=== PATIENT | male | born 1980 | race Caucasian/White ===

== ENCOUNTER 2018-05-04 08:33 | Outpatient (REF) | payer OTHER, SELFPAY ==
[2018-05-04 14:10] LABS: ALT 32 U/L (12-78); AST 17 U/L (15-37); Albumin 3.9 g/dL (3.4-5.0); Alkaline Phosphatase 110 U/L (46-116); Anion Gap 8.2 mmol/L (3-11); BUN 18 mg/dL (7-18); Bilirubin, Total 0.5 mg/dL (0.2-1.0); CO2 28.8 mmol/L (21.0-32.0); CREATININE 1.11 mg/dL (0.70-1.30); Calcium 9.3 mg/dL (8.5-10.1); Chloride 104 mmol/L (98-107); Cholesterol 218 mg/dL (50-200); Glucose 103 mg/dL (70-100); HDL Cholesterol 43 mg/dL (40-60); LDL CHOLESTEROL 137 mg/dL (<100); Potassium 4.2 mmol/L (3.5-5.1); Sodium 141 mmol/L (136-145); Total Protein 7.2 g/dL (6.4-8.2); Triglyceride 218 mg/dL (30-150)
== END 2018-05-04 08:53 ==
LOC: NCHCN 08:33
PROVIDERS: PCP Nurse Practitioner Family; Visit Provider Nurse Practitioner Family
DX: Z00.00 Encounter for general adult medical examination without abnormal findings (principal); Z13.228 Encounter for screening for other metabolic disorders; Z13.220 Encounter for screening for lipoid disorders
CPT/HCPCS: 80053; 80061; 83721

== ENCOUNTER 2019-05-18 13:41 | Outpatient (REF) | payer OTHER, SELFPAY ==
[2019-05-18 15:03] LABS: Abs Immature Grans 0.03 k/cumm (0.0-0.09); Absolute Basophil Count 0.06 k/cumm (0.0-0.2); Absolute Eosinophil Count 0.26 k/cumm (0.0-0.7); Absolute Lymphocyte Count 2.96 k/cumm (1.2-3.4); Absolute Monocyte Count 1.18 k/cumm (0.11-0.7); Absolute Neutrophil Count 7.11 k/cumm (1.2-6.7); Basophils % 0.5; Eosinophils % 2.2; HCT 49.5 % (40.0-50.0); HGB 16.7 g/dL (13.5-17.5); Immature Grans % 0.3 %; Lymphocytes % 25.5; Mean Corp. HGB Concentration 33.7 g/dL (32.0-36.0); Mean Corpuscular Hemoglobin 31.3 pg (27.0-33.0); Mean Corpuscular Volume 92.9 fL (80-95); Mean Platelet Volume 9.9 fL (8.0-11.0); Monocytes % 10.2; Neutrophils % 61.3; Platelet Count 304 x1000/uL (130-400); RBC 5.33 m/cumm (4.50-6.00); RBC Distribution Width 13.2 % (11.8-14.1)
[2019-05-18 15:24] LABS: ALT 27 U/L (16-63); AST 20 U/L (15-37); Albumin 4.2 g/dL (3.4-5.0); Alkaline Phosphatase 116 U/L (46-116); Anion Gap 9.6 mmol/L (3-11); BUN 20 mg/dL (7-18); Bilirubin, Total 0.2 mg/dL (0.2-1.0); CO2 28.4 mmol/L (21.0-32.0); CREATININE 0.87 mg/dL (0.70-1.30); Calcium 9.1 mg/dL (8.5-10.1); Chloride 107 mmol/L (98-107); Glucose 96 mg/dL (74-106); Potassium 4.7 mmol/L (3.5-5.1); Sodium 145 mmol/L (136-145)
[2019-05-18 15:44] LABS: Calculated LDL 143 mg/dL; Cholesterol 214 mg/dL (<200); HDL Cholesterol 38 mg/dL (40-60); Triglyceride 167 mg/dL (<150)
== END 2019-05-18 14:01 ==
LOC: NCHCN 13:41
PROVIDERS: PCP Nurse Practitioner Family; Visit Provider Nurse Practitioner Family
DX: Z00.00 Encounter for general adult medical examination without abnormal findings (principal); Z13.0 Encounter for screening for diseases of the blood and blood-forming organs and certain disorders involving the immune mechanism; Z13.220 Encounter for screening for lipoid disorders; Z13.228 Encounter for screening for other metabolic disorders
CPT/HCPCS: 80053; 80061; 85025

== ENCOUNTER 2019-10-18 17:08 | Outpatient (REF) | payer OTHER, SELFPAY ==
[2019-10-19 23:52] LABS: COVID-19 RT-PCR UVMMC Result Negative (Negative)
== END 2019-10-18 17:28 ==
LOC: NCHCN 17:08
PROVIDERS: PCP Nurse Practitioner Family; Visit Provider Nurse Practitioner Family
DX: J06.9 Acute upper respiratory infection, unspecified (principal)
CPT/HCPCS: U0003

== ENCOUNTER 2020-04-07 22:27 | Outpatient (REF) | payer SELFPAY ==
[2020-04-11 22:09] LABS: COVID-19 RT-PCR Result NEGATIVE (Negative)
== END 2020-04-07 22:47 ==
LOC: NCHCN 22:27
PROVIDERS: PCP Nurse Practitioner Family; Visit Provider Nurse Practitioner Family
DX: Z20.828 Contact with and (suspected) exposure to other viral communicable diseases (principal)
CPT/HCPCS: U0003

== ENCOUNTER 2021-12-10 12:40 | Outpatient (REF) | payer OTHER, SELFPAY ==
[2021-12-10 14:18] LABS: ALT 32 U/L (16-63); AST 23 U/L (15-37); Albumin 4.1 g/dL (3.4-5.0); Alkaline Phosphatase 100 U/L (46-116); Anion Gap 11.5 mmol/L (3-11); BUN 19 mg/dL (7-18); Bilirubin, Total 0.3 mg/dL (0.2-1.0); CO2 25.5 mmol/L (21.0-32.0); CREATININE 0.8 mg/dL (0.70-1.30); Calcium 9.3 mg/dL (8.5-10.1); Calculated LDL 144 mg/dL (<100); Chloride 103 mmol/L (98-107); Cholesterol 229 mg/dL (<200); Glucose 101 mg/dL (74-106); HDL Cholesterol 49 mg/dL (40-60); Sodium 140 mmol/L (136-145); Total Protein 7.8 g/dL (6.4-8.2); Triglyceride 184 mg/dL (<150)
== END 2021-12-10 12:41 | disposition home or self-care (01) ==
LOC: NCHCN 12:40
PROVIDERS: PCP Nurse Practitioner Family; Visit Provider Nurse Practitioner Family
DX: Z00.00 Encounter for general adult medical examination without abnormal findings (principal); E78.5 Hyperlipidemia, unspecified; F17.200 Nicotine dependence, unspecified, uncomplicated; F10.10 Alcohol abuse, uncomplicated
CPT/HCPCS: 80053; 80061

== ENCOUNTER 2022-09-17 22:33 | Emergency (ER) | payer OTHER, SELFPAY ==
[2022-09-17] VITALS (21 sets, daily range): BP systolic 129–170; BP diastolic 66–103; PULSE 57–100; RESP 10–19; O2SAT 94–98
--- NOTE | 2022-09-17 22:30 | RT.EKG_ITS ---
APPROVED REPORT Exam: Resting ECG Reason for Exam: chest pain Patient Location: E HR:85 bpm ECG Measurements Heart Rate 85 AXIS MO 197 P 77 QRSd 113 QRS 101 QT 349 T 101 QTc 415 Conclusion Sinus rhythm...normal P axis, V-rate 60- 99 Inferior infarct, acute...ST>0.10mV, T upright, II III aVF STEMI IWMI with anterolat extension
[2022-09-17 22:56] LABS: Abs Immature Grans 0.06 10^3/uL (0.0-0.06); Absolute Eosinophil Count 0.54 10^3/uL (0.0-0.7); Absolute Lymphocyte Count 6.66 10^3/uL (1.2-3.4); Basophils % 1.1; Eosinophils % 3.2; HCT 47.5 % (40.0-50.0); HGB 16.8 g/dL (13.5-17.5); Immature Grans % 0.4; Lymphocytes % 39.5; MCH 32.1 pg (27.0-33.0); MCHC 35.4 % (32.0-36.0); MCV 91 fL (80-95); MPV 8.8 fL (8.0-11.0); Monocytes % 10.8; Platelet Count 304 10^3/uL (130-400); RBC 5.24 10^6/uL (4.36-5.78); RDW 12.2 % (11.8-14.1); RDW-SD 40.1 fL; WBC 16.87 10^3/uL (4.4-10.8)
[2022-09-17] MEDS: Aspirin 325 MG TAB (22:56)
[2022-09-17 22:57] LABS: Absolute Basophil Count 0.19 10^3/uL (0.0-0.2); Absolute Monocyte Count 1.82 10^3/uL (0.1-0.8); Absolute Neutrophil Count 7.59 10^3/uL (1.2-6.7)
[2022-09-17] MEDS: nitroGLYcerin 0.4 MG TAB ×3 (22:57→23:08)
[2022-09-17] MEDS: Heparin in 0.45% NaCl 25,000 UNIT/250 ML BAG 10 UNIT IV (23:00)
--- NOTE | 2022-09-17 23:00 | DI.RAD_ITS ---
Exam(s) XR PORTABLE CHEST AP EXAM: XR PORTABLE CHEST AP CLINICAL HISTORY: CP. TECHNIQUE: 2D digital imaging was performed. COMPARISON: CR CHEST 2 VIEWS PA,LAT from 10/11/2008 FINDINGS: Single AP portable view. Left chest cardiac pads in place. Heart size is upper normal. The mediastinum is not widened. Lungs are clear. No infiltrates nor obvious pleural effusions. IMPRESSION: No acute pulmonary findings on this single AP portable view of the chest. DATA REPOSITORY: RADIATION DOSE DELIVERED:
[2022-09-17] MEDS: Tenecteplase 50 MG KIT (23:01)
[2022-09-17] MEDS: LORazepam 2 MG/ML VIAL (23:02)
[2022-09-17 23:08] LABS: INR 0.9 (0.9-1.1); PTT Activated 23.5 sec (21.5-31.9); Prothrombin Time 9.1 sec (9.3-11.0)
[2022-09-17] MEDS: MORPHine 4 MG/ML SYR IVP (23:10)
--- NOTE | 2022-09-17 23:10 | W.ED.GENAD ---
Discharge Plan Discharge Details Chief Complaint: Chest Pain Primary Care Provider: ABIGAIL ARROYO ED Provider: Ashly Inman Home Meds and New Rx's Prescriptions: No Action lorazepam 0.5 MG tablet 0.5 mg PO PRN PRN paroxetine HCl 40 MG tablet 1 tab PO DAILY Medical Decision Making Patient having an acute STEMI, inferior wall. The patient's blood pressure was 160s over 100 on arrival and he was given 3 sublingual nitroglycerin without helping his pain at all. His blood pressure tolerated this well and he is getting morphine at this time (BP also tolerating this). The patient got 324 mg of aspirin, TNK, and heparin. I will hold off on oral Plavix until I talk to cardiology at [facility]. The patient and his did give permission for the TNK after it was confirmed that he has no contraindications. They know that we will likely transfer him to [facility] but are waiting for an accepting cadence specialists. Pacer pads were placed on the patient after I began noticing a number of P waves without QRS complexes. This was interspersed with normal sinus rhythm. This time the patient seems to be in normal sinus rhythm. 2335: Note, the patient's weight in the ER today is 124.7 kg, not 115.6. Patient discussed with Dr. Maxwell from cardiology at [facility]. Dr. Guille Magdaleno will be the accepting physician. Dr. Maxwell concurs with 300 mg of Plavix. He concurs with holding on IV nitroglycerin is the 3 sublinguals did nothing. He would like us to focus on opioids instead for the patient's pain. Patient has had 10 mg of IV morphine is and is getting another 6 mg right now. He tells me that his anxiety feels pretty good but his pain is still about an 8 out of 10. 2355: Patient's vital signs continue to be stable. He appears to be sleeping when I walk into the room although tells me that his pain is down to a 7 out of 10. We will give him some additional morphine. DART is expected here about 12:15. Pt. later said he had had some NV before coming to ED. Medical Records Medical records reviewed: Yes I reviewed the patient's medical records. Imaging Data Radiologic Study: Attestation: I personally reviewed and interpreted this imaging study as follows: (NAD) ECG Data Attestation: I personally reviewed and interpreted this ECG (s) as follows: (NSR 85, IWMI with anterolateral extension) HPI General Date/Time Provider Initiated Documentation: 09/17/22 22:47. HPI Narrative: This 41-year-old male patient presents with a history of substernal chest pain that began 30 minutes prior to arrival. The patient's description of it is intense. He states that it went across his chest and down both arms. The arm pain is not as bad now though the chest pain persist. It does not radiate into his neck or back. He has no shortness of breath but states that the pain takes his breath away. He has no abdominal pain. There is no pedal edema or calf pain. Patient reports that he smokes a pack of cigarettes per day and his cholesterol is borderline. He denies a history of hypertension, diabetes, or cocaine use. There is no family history of MT or coronary artery disease. The pain is severe. Nothing really makes it better or worse. It is constant. Patient does drink 3-4 times a week and has 7 or 8 drinks on those days. He states that he has had about 7 drinks today. He also has a history of anxiety Related Data Home Medications Medication Instructions Recorded Confirmed lorazepam 0.5 mg tablet 0.5 mg PO PRN PRN 07/08/12 09/17/22 paroxetine HCl 40 mg tablet 1 tab PO DAILY 02/25/15 09/17/22 Allergies Allergy/AdvReac Type Severity Reaction Status Date / Time No Known Allergies Allergy Unverified 09/17/22 22:42 General Stated Complaint: Chest Pain JUDD: 3 Review of Systems Constitutional Constitutional: Denies chills, Denies fever(s), Denies headache(s) and Denies weakness Eyes Eyes: Denies diplopia and Reports other (no redness) ENT Ears, Nose, Mouth, and Throat: Denies otalgia, Denies headache(s), Denies nasal congestion, Denies nasal discharge, Denies neck pain and Denies sore throat Cardiovascular Cardiovascular: Reports chest pain, Denies palpitations and Denies dyspnea Respiratory Respiratory: Denies cough and Denies dyspnea Gastrointestinal Gastrointestinal: Denies abdominal pain, Denies diarrhea, Denies nausea and Denies vomiting Genitourinary Genitourinary: Denies difficulty urinating and Denies dysuria Musculoskeletal Musculoskeletal: Denies myalgias, Denies muscle weakness, Denies neck pain, Denies numbness and Reports other (edema) Integumentary/Breasts Skin/Breast: Denies change in pigmentation and Denies rash Neurologic Neurologic: Denies headache(s), Denies numbness and Denies weakness Endocrine Endocrine: Denies palpitations PFSH Medical History Depression Social History Smoking/Tobacco Use Status: Current every day Smoking risk assessment performed?: Yes Alcohol Intake: current Alcohol Intake frequency: a few times a week Drug use: Occasionally Substance use type: marijuana Do you feel safe at home: Yes Do you feel safe in your relationship?: Yes Exam Const General: well developed, well groomed and acute distress (Uncomfortable) Nutritional Appearance: well nourished Orientation: alert and oriented x3 HENHI Head: normocephalic and atraumatic Ears: external ears normal Mouth: oropharynx normal and moist mucous membranes Throat: posterior oropharynx normal Eyes Conjunctivae: conjunctivae normal Neck Neck: full ROM and supple Chest Chest: normal inspection of the chest Resp Effort & Inspection: normal respiratory effort Auscultation: clear to auscultation bilaterally Cardio Rate: regular rate Rhythm: regular rhythm Heart Sounds: no murmurs and no rubs GI Inspection: normal to inspection Palpation: soft, nontender and other (non distended) Auscultation: normal bowel sounds Skin General skin exam: no rashes or lesions noted and other (pink, warm, dry) Neuro General: patient alert, patient awake and patient oriented x3 Speech: speech normal Motor: other (OCONNOR) Sensory Exam: no sensory deficits noted Extrem General: normal to inspection, full ROM and pedal edema present Psych Mental Status: mental status grossly normal Speech and Movement: speech and movement normal Affect: normal affect Course Vital Signs Vital signs: Vital Signs Pulse 92 H 09/17/22 22:36 Respiratory Rate 19 09/17/22 22:36 Blood Pressure 164/100 H 09/17/22 22:36 Pulse Oximetry 97 09/17/22 22:36 Pulse 92 H 09/17/22 22:36 Respiratory Rate 19 09/17/22 22:36 Respiratory Effort Normal 09/17/22 22:39 Respiratory Depth Normal 09/17/22 22:39 Respiratory Pattern Normal 09/17/22 22:39 Blood Pressure 164/100 H 09/17/22 22:36 Blood Pressure Position Supine 09/17/22 22:36 Pulse Oximetry 97 09/17/22 22:36 Oxygen Delivery Method Room Air 09/17/22 22:36 Oxygen Flow Rate 0 09/17/22 22:36 Pain Level 10 09/17/22 22:36
[2022-09-17 23:18] LABS: Diff Comment Agrees w/ Instrument
[2022-09-17 23:19] LABS: RBC Morphology Normal
[2022-09-17] MEDS: MORPHine 10 MG/ML VIAL ×2 (23:19→23:23)
[2022-09-17] MEDS: LORazepam 2 MG/ML VIAL 0.5 MG IVP (23:19)
[2022-09-17 23:22] LABS: ALT 31 U/L (16-63); AST 17 U/L (15-37); Albumin 4.1 g/dL (3.4-5.0); Alkaline Phosphatase 119 U/L (46-116); BUN 15 mg/dL (7-18); Bilirubin, Total 0.3 mg/dL (0.2-1.0); Calcium 9.3 mg/dL (8.5-10.1); Chloride 104 mmol/L (98-107); Estimated GFR 95.77 (mL/min/1.73m2); Glucose 113 mg/dL (74-106); Magnesium 2.1 mg/dL (1.8-2.4); NT-proBNP 16 pg/mL (<300); Potassium 3.5 mmol/L (3.5-5.1); Sodium 140 mmol/L (136-145); Total Protein 7.5 g/dL (6.4-8.2); Troponin I < 50 ng/L (<or=60)
[2022-09-17] MEDS: MORPHine 10 MG/ML VIAL 6 MG IVP ×2 (23:37→23:59)
[2022-09-17] MEDS: Clopidogrel 300 MG TAB PO (23:38)
[2022-09-18] VITALS: PULSE 94; RESP 16; O2SAT 94
[2022-09-18 00:01] VITALS: BP 144/90; PULSE 85; PULSE 86; RESP 14; O2SAT 95
--- NOTE | 2022-09-18 00:05 | DI.VRAD_ITS ---
PROCEDURE INFORMATION: Exam: XR Chest Exam date and time: 09/17/2022 11:14 PM Age: 41 years old Clinical indication: Other: Chest pain TECHNIQUE: Imaging protocol: Radiologic exam of the chest. Views: 1 view. COMPARISON: No relevant prior studies available. FINDINGS: Lungs: Unremarkable. No consolidation. Pleural spaces: Unremarkable. No pleural effusion. No pneumothorax. Heart/Mediastinum: Unremarkable. No cardiomegaly. Bones/joints: Unremarkable. IMPRESSION: No acute findings. Dictated and Authenticated by: Jose Cortes MD. Ordering:RAMON Limon MD
[2022-09-18 00:06] VITALS: BP 147/93; PULSE 90; PULSE 94; RESP 16; O2SAT 93
[2022-09-18 00:10] VITALS: PULSE 86; RESP 12; O2SAT 94
[2022-09-18 00:11] VITALS: BP 157/96; PULSE 91; O2SAT 95
[2022-09-18] MEDS: Ondansetron 4 MG/2 ML VIAL 8 MG IVP (00:15)
== END 2022-09-18 00:26 | disposition short-term general hospital (02) ==
PROVIDERS: Registered Nurse Emergency; Emergency Provider Emergency Medicine; PCP Nurse Practitioner Family
DX: I21.19 ST elevation (STEMI) myocardial infarction involving other coronary artery of inferior wall (principal); F41.9 Anxiety disorder, unspecified; R11.2 Nausea with vomiting, unspecified
CPT/HCPCS: 36415; 80053; 93005; 96365; 96375; 96376; 99285; 71045; 83735; 83880; 84484; 85025; 85610; 85730; 93010; J2060; J2270; J2405; J3101

== ENCOUNTER 2022-10-21 08:31 | Outpatient (RCR) | payer OTHER, SELFPAY | END 2022-10-25 23:59 | disposition home or self-care (01) | LOC: CR 08:31 | PROVIDERS: PCP Nurse Practitioner Family; Visit Provider Internal Medicine Cardiovascular Disease | DX: I25.2 Old myocardial infarction (principal); Z51.89 Encounter for other specified aftercare | CPT/HCPCS: S9472 ==

== ENCOUNTER 2022-11-25 12:36 | Outpatient (RCR) | payer OTHER, SELFPAY | END 2022-11-25 23:59 | disposition home or self-care (01) | LOC: CR 12:36 | PROVIDERS: PCP Nurse Practitioner Family; Visit Provider Internal Medicine Cardiovascular Disease | DX: I25.2 Old myocardial infarction (principal); Z51.89 Encounter for other specified aftercare | CPT/HCPCS: S9472 ==

== ENCOUNTER 2022-12-19 16:23 | Outpatient (REF) | payer OTHER, SELFPAY ==
[2022-12-19 19:03] LABS: HCT 43.6 % (40.0-50.0); HGB 15.1 g/dL (13.5-17.5); MCH 31.4 pg (27.0-33.0); MCHC 34.6 % (32.0-36.0); MCV 91 fL (80-95); MPV 9.6 fL (8.0-11.0); Platelet Count 234 10^3/uL (130-400); RBC 4.81 10^6/uL (4.36-5.78); RDW 12.5 % (11.8-14.1); RDW-SD 41.1 fL; WBC 8.88 10^3/uL (4.4-10.8)
[2022-12-19 19:17] LABS: ALT 31 U/L (16-63); AST 20 U/L (15-37); Albumin 3.8 g/dL (3.4-5.0); Alkaline Phosphatase 115 U/L (46-116); Anion Gap 6.9 mmol/L (3-11); BUN 20 mg/dL (7-18); Bilirubin, Total 0.4 mg/dL (0.2-1.0); CO2 28.1 mmol/L (21.0-32.0); Calculated LDL 48 mg/dL (<100); Chloride 104 mmol/L (98-107); Cholesterol 111 mg/dL (<200); Estimated GFR 95.18 (mL/min/1.73m2); Glucose 113 mg/dL (74-106); HDL Cholesterol 48 mg/dL (40-60); Sodium 139 mmol/L (136-145); Total Protein 6.9 g/dL (6.4-8.2); Triglyceride 79 mg/dL (<150)
== END 2022-12-19 16:24 | disposition home or self-care (01) ==
LOC: NCHCN 16:23
PROVIDERS: PCP Nurse Practitioner Family; Visit Provider Nurse Practitioner Family
DX: E78.5 Hyperlipidemia, unspecified (principal); F17.201 Nicotine dependence, unspecified, in remission; I25.2 Old myocardial infarction; Z00.00 Encounter for general adult medical examination without abnormal findings
CPT/HCPCS: 80053; 80061; 85027

== ENCOUNTER 2022-12-25 08:00 | Outpatient (RCR) | payer OTHER, SELFPAY ==
--- NOTE | 2022-12-23 08:15 | RT.EKG_ITS ---
APPROVED REPORT Exam: Resting ECG Reason for Exam: T wave changes Patient Location: O HR:78 bpm ECG Measurements Heart Rate 78 AXIS NV 154 P 65 QRSd 100 QRS 42 QT 379 T -11 QTc 432 Conclusion Sinus rhythm...normal P axis, V-rate 50- 99 Baseline wander in lead(s) II,III,aVF,V3,V4 Normal Electrocardiogram
== END 2022-12-26 23:59 | disposition home or self-care (01) ==
LOC: CR 08:00
PROVIDERS: PCP Nurse Practitioner Family; Visit Provider Internal Medicine Cardiovascular Disease
DX: I25.2 Old myocardial infarction (principal); Z51.89 Encounter for other specified aftercare
CPT/HCPCS: S9472

== ENCOUNTER 2023-01-17 09:00 | Outpatient (RCR) | payer OTHER, SELFPAY | END 2023-01-25 23:59 | disposition home or self-care (01) | LOC: CR 09:00 | PROVIDERS: PCP Nurse Practitioner Family; Visit Provider Internal Medicine Cardiovascular Disease | DX: I25.2 Old myocardial infarction (principal); Z51.89 Encounter for other specified aftercare | CPT/HCPCS: S9472 ==

== ENCOUNTER 2024-05-25 17:51 | Outpatient (REF) | payer OTHER, SELFPAY ==
[2024-05-25 19:26] LABS: ALT 33 U/L (16-63); AST 23 U/L (15-37); Albumin 4.4 g/dL (3.4-5.0); Alkaline Phosphatase 99 U/L (46-116); Anion Gap 9.7 mmol/L (3-11); BUN 17 mg/dL (7-18); Bilirubin, Total 0.61 mg/dL (0.2-1.0); CO2 27.3 mmol/L (21.0-32.0); Calcium 9.5 mg/dL (8.5-10.1); Calculated LDL 64 mg/dL (<100); Chloride 105 mmol/L (98-107); Cholesterol 148 mg/dL (<200); Estimated GFR 94.59 (mL/min/1.73m2); Glucose 101 mg/dL (74-106); HDL Cholesterol 55 mg/dL (40-60); Sodium 142 mmol/L (136-145); Total Protein 7.6 g/dL (6.4-8.2); Triglyceride 146 mg/dL (<150)
[2024-05-26 18:32] LABS: Hepatitis C Ab w Rflx HCV PCR Negative (Negative)
== END 2024-05-25 17:52 | disposition home or self-care (01) ==
LOC: NCHCN 17:51
PROVIDERS: PCP Nurse Practitioner Family; Visit Provider Nurse Practitioner Family
DX: Z00.00 Encounter for general adult medical examination without abnormal findings (principal); Z11.59 Encounter for screening for other viral diseases; Z13.1 Encounter for screening for diabetes mellitus
CPT/HCPCS: 80053; 80061; 86803

== ENCOUNTER 2024-08-02 10:44 | Day surgery (SDC) | payer OTHER, SELFPAY ==
--- NOTE | 2024-08-01 08:29 | PDOC.DSDIS_ITS ---
Date of service: 08/02/24 Discharge Plan Disposition Patient Disposition: Home Condition: Good Discharge Details Reason For Visit: Screening colonoscopy Attending Provider: Basil Walter Primary Care Provider: ABIGAIL ARROYO Home Meds and New Rx's Prescriptions: Continued atorvastatin 80 mg tablet 80 mg PO DAILY losartan 25 mg tablet 25 mg PO DAILY nitroglycerin 0.4 mg tablet, sublingual 0.4 mg sublingual Q5-15M PRN Rx Instructions: do not exceed 3 doses per episode thiamine HCl (vitamin B1) 100 mg tablet 100 mg PO DAILY aspirin 81 mg capsule 81 mg PO DAILY carvedilol 12.5 mg tablet 6.25 mg PO BID Rx Instructions: must administer with a meal/food paroxetine HCl 40 mg tablet 40 mg PO DAILY lorazepam 0.5 MG tablet 0.5 mg PO PRN PRN Discontinued bisacodyl [Dulcolax (bisacodyl)] 5 mg tablet,delayed release (DR/EC) 5 mg PO ONCE Qty: 4 0RF Rx Instructions: Take per colonoscopy instructions provided by ordering providers office polyethylene glycol 3350 17 gram/dose powder 17 g PO ONCE Qty: 238 0RF Rx Instructions: Take per colonoscopy instructions provided by ordering providers office Discharge Instructions Instructions: Colon polyps Additional Instructions: Derrell, it was a pleasure meeting you today, and I hope you are comfortable throughout the colonoscopy. Things went very smoothly. Your prep was excellent. I did find, and removed, a total of 5 polyps today. These were all relatively small, and none have any particularly worrisome features to the naked eye. All of these polyps will be sent off to the pathologist for their review. Polyps 2, different types, we use the nature from the polyp analysis to help henna de the timing of future colonoscopies. Those results usually take about a week or 2 to get back, but once my office has them, we will be in touch with those recommendations. If you need anything or have any other questions, please do not hesitate to call 1. If tolerated, consume a soft, low fiber diet for 1-2 days. 2[address] Do not drive, drink alcohol, operate machinery, make critical decisions, or d o activities that require coordination or balance for 24 hours. 3. Because air was put into your colon during the procedure, expelling air from your rectum (passing gas or farting) is normal. 4. You may not have a bowel movement for 1-3 days because of the colonoscopy prep. This is normal. 5. Go directly to the emergency room if you notice any of the following: Develop chills (warm to touch), or if you have a thermometer and your temperature is above 101 Difficulty breathing or difficultly swallowing Persistent vomiting Severe abdominal pain, other than gas cramps Severe chest pain Black, tarry stools Any bleeding ? exceeding one tablespoon 6. Call your physician if the site where your intravenous was started becomes red, swollen, painful, and warm to touch. 7. Your physician has reviewed your pre-procedure medications. Please continue to take those medications as previously ordered. You will be given specific information/education regarding any changes to your medications before leaving. Activity:: Activity as Tolerated Diet:: As Tolerated Discharge Orders Discharge Orders: Discharge Order (Routine); Ordered 08/01/24 Ordered By: Basil Walter DS: Diagnosis Discharge Diagnosis (1) Encounter for screening colonoscopy: Status: Acute Asessment and Plan: Follow-up on polypectomy results
--- NOTE | 2024-08-01 08:31 | W.COLOREPORT ---
Date of service: 08/02/24 Time of Service: 12:51 Colonoscopy Report Date of procedure: 08/02/24 Pre-op diagnosis general: Screening colonoscopy Post-op diagnosis procedure note: other (Colon polyps) Procedure: Colonoscopy with polypectomy Surgeon: Basil Walter Anesthesia Type: General:No Airway Estimated blood loss (mL): 5 Pathology: other (0.25 cm rectal polyps x 3, 0.25 cm flat polyp at 25 cm) Complications: None Disposition: same day Indications: Derrell is a 43-year-old man who needs us for screening colonoscopy Prep: Miralax/Dulcolax Procedure Start Time: 12:12 Procedure End Time: 12:32 Retraction Time: 10 Findings: 0.25 cm rectal polyps x 3, 0.25 cm flat polyp at 25 cm Procedure Description: After the induction of anesthesia, and with the patient in left lateral decubitus position, I began by performing an external anorectal exam.? Perineum and skin were normal, as was the anal verge.? There was no evidence of external hemorrhoids.? Next, I performed a digital rectal exam.? I did not appreciate any abnormal findings.? Next, I advanced a colonoscope into the rectal vault.? I performed retroflexion.? This appeared normal.? Within the midportion of the rectal vault were 2 polyps. These were both pedunculated, and each was about 0.25 cm. Both of these polyps were removed with cold forceps with minimal issues. There was no significant bleeding. In the upper portion of the rectum was another polyp. This was also about 0.25 cm and slightly pedunculated. This was also removed with cold forceps. Using insufflation, I then advanced the colonoscope beyond the rectal folds and into the sigmoid colon before advancing towards the cecum.? The quality of the prep was adequate.? The scope was noted to be in the cecum by identification of the ileocecal valve and appendiceal orifice.? I then began withdrawing the colonoscope using repeated irrigation as necessary for full evaluation of the colonic mucosa. Around 25 cm from the anal verge was another 0.25 cm polyp. This was flat. This was removed with cold forceps similar to the others. once the scope was withdrawn to the level of the rectum, great care was taken to examine portions of the rectal folds.? Finally, the scope was withdrawn and the patient was brought to the same-day surgery recovery unit as the anesthetic wore off. ?The findings and instructions were shared with the patient prior to discharge. Drummond Bowel Prep Drummond Bowel Prep Right Colon: 3 Left Colon: 3 Transverse Colon: 3 Total Score: 9
[2024-08-02 11:01] VITALS: BP 139/94; PULSE 65; RESP 14; TEMP 36.4; O2SAT 98
[2024-08-02] MEDS: Lactated Ringers 1,000 ML 80 ML IV (11:21)
--- NOTE | 2024-08-02 11:24 | W.ANESPRE ---
General Info Date of Service Date Performed: 08/02/24 Height: 6 ft 1 in Weight: 121.1 kg Body Mass Index (BMI): 35.2 Surgical Procedure: Operation Date: 08/02/24 11:50 Proposed Procedure Side Surgeon ann Walter MD Meds Allergies and Home Medications Allergies Allergy/AdvReac Type Severity Reaction Status Date / Time No Known Allergies Allergy Verified 08/02/24 11:25 Home Medication ?Medication ?Instructions ?Recorded lorazepam 0.5 mg tablet 0.5 mg PO PRN PRN 07/08/12 aspirin 81 mg capsule 81 mg PO DAILY 06/28/24 atorvastatin 80 mg tablet 80 mg PO DAILY 06/28/24 losartan 25 mg tablet 25 mg PO DAILY 06/28/24 nitroglycerin 0.4 mg sublingual 0.4 mg sublingual Q5-15M PRN 06/28/24 tablet thiamine HCl (vitamin B1) 100 mg 100 mg PO DAILY 06/28/24 tablet carvedilol 12.5 mg tablet 6.25 mg PO BID 07/05/24 paroxetine HCl 40 mg tablet 40 mg PO DAILY 07/05/24 Current Visit Medications: Current Medications Generic Name Dose Route Start Last Admin Trade Name Freq PRN Reason Stop Dose Admin Ringer's Solution 1,000 mls @ 80 mls/hr 08/02/24 06:00 08/02/24 11:21 IV 08/02/24 23:59 80 mls/hr INFUSION STERLING Administration IV Miscellaneous Supplies 1 each 08/02/24 06:00 Iv Access IV 08/02/24 23:59 DIRECTED STERLING Ondansetron HCl 4 mg 08/01/24 08:32 Ondansetron 4 Mg/2 Ml Vial IVP 08/31/24 08:31 Q4H PRN PRN Nausea / Vomiting Sodium Chloride 0 ml 08/02/24 06:00 Normal Saline Flush 10 Ml Syr IV 08/02/24 23:59 PRN PRN Sodium Chloride 0 ml 08/02/24 06:00 Normal Saline 10 Ml Vial IJ 08/02/24 23:59 DIRECTED PRN Sterile Water 0 ml 08/02/24 06:00 Water,Injection,Sterile 10 Ml Vial IJ 08/02/24 23:59 DIRECTED PRN PFSH Active Problems Active Problems: Problem Status Onset Code Encounter for screening colonoscopy Acute Z12.11 Medical History Medical History Ischemic cardiomyopathy Nicotine dependence Hyperlipidemia Mixed anxiety and depressive disorder STEMI (ST elevation myocardial infarction) (~08/2022) Coronary arteriosclerosis Depression Tobacco Smoking/Tobacco Use Status: Former Tobacco Use Smokeless tobacco user: chewing tobacco Passive smoking exposure: No Alcohol Alcohol Intake: current Alcohol intake frequency: a few times a week Substance Use Substance use: Occasionally Substance use type: marijuana Vital Signs and Lab Results Vital Signs Most Recent Vital Signs in EMR: Most Recent Vital Signs Temp Pulse Resp BP Pulse Ox 36.4 C L 65 14 139/94 H 98 08/02/24 11:01 08/02/24 11:01 08/02/24 11:01 08/02/24 11:01 08/02/24 11:01 Lab Results Blood Type / Crossmatch: No Data to Display Complete Blood Count: No Data to Display Complete Metabolic Panel: No Data to Display Liver Function Panel: No Data to Display Coagulation Panel: No Data to Display Cardiac Panel: No Data to Display Arterial Blood Gas: No Data to Display Venous Blood Gas: No Data to Display Pancreas Panel: No Data to Display Thyroid Panel: No Data to Display Infectious Disease: No Data to Display Blood Cultures: No Data to Display Toxicology Panel: No Data to Display Anesthesia Assessment and Plan Anesthesia History Personal History: No History of Anesthesia Complications Family History: No Family History of Anesthesia Complications Exercise Tolerance Exercise Tolerance: Metabolic Equivalents>4 Pertinent Negatives Pertinent Negatives: No Symptoms of GERD, No Major Pulmonary Symptoms or Complaints and No History of CVA/TIA Cardiac & Pulmonary Exam Cardiac Exam: Normal S1/S2 Heart Sounds Pulmonary Exam: Clear Bilateral Breath Sounds Implantable Cardiac Device Does patient have a Pacemaker or an ICD?: No Airway Exam Known Difficult Airway: No Mallampati Class: 2 Mouth Opening: Normal (> 3cm) Thyromental Distance: Greater than 3 cm Neck Range of Motion: Full ROM Neck Circumference: Normal Teeth Condition: Normal Dentition ASA Classification ASA Score: ASA 2 Emergency Case?: No NPO Status NPO Status: NPO Clears >2 hours, Solids >8 hours Anesthesia Plan Resuscitation Status: Full Code Anesthesia Technique: General Anesthesia Airway Planned: Natural Airway Monitors Used: Standard Monitors
[2024-08-02 12:04] VITALS: BMI 35.2
--- NOTE | 2024-08-02 12:13 | BOWEL_PTH ---
PATIENT: Derrell Santiago LOC: [facility] U#:[id number] AGE/SX: 43/M ROOM: RE08/02/[address]: Basil Walter MD : 1980 BED: DIS: 08/02/2024 SPEC #: [id number] RECD: 08/02/24 13:28 STATUS: JOSE R REQ #: [id number] ANGELICA: 08/02/24 12:[address]: Basil Walter DEPT: Surgical Specimen RECD BY: Alee Rodriguez ENTERED: 08/02/24 13:30 SP TYPE: Bowel OTHR DR: ABIGAIL ARROYO, ROD GREASER Tissues: 1 - BIOPSY BOWEL 2 - BIOPSY BOWEL 3 - BIOPSY BOWEL Procedures: GROSS AND MICRO LEVEL 4 IMMUNOPEROXIDASE STAIN Comments: [id number]
[2024-08-02 12:36] VITALS: BP 142/97; PULSE 78; RESP 16; TEMP 36; O2SAT 98
[2024-08-02 13:05] VITALS: BP 130/76; PULSE 65; RESP 16; TEMP 36.4; O2SAT 98
--- NOTE | 2024-08-02 13:24 | W.ANESPOSTOP ---
Postoperative Evaluation Date, Time and Location Date Performed: 08/02/24 Time Performed: 13:24 Patient Location: Day Surgery Unit Vital Signs Most Recent Imported Vital Signs: Most Recent Vital Signs Temp Pulse Resp BP Pulse Ox 36.4 C L 65 16 130/76 98 08/02/24 13:05 08/02/24 13:05 08/02/24 13:05 08/02/24 13:05 08/02/24 13:05 Pain Score Most Recent Pain Score: Most Recent Pain Score Pain Level 0 08/02/24 13:05 Assessment Mental Status: Awake (Alert & Oriented to Patient Baseline) Airway and Respiratory Function: Patent airway with normal (patient baseline) respiratory exam Cardiovascular Function: Hemodynamically Stable Hydration Status: Adequately Hydrated Nausea & Vomiting: No Nausea or Vomiting Pain: Pt. Denies Any Pain Peripheral Nerve Block: Patient did not receive a nerve block
== END 2024-08-02 13:20 | disposition home or self-care (01) ==
LOC: SUR 10:45
PROVIDERS: PCP Nurse Practitioner Family; Visit Provider Surgery
PROC: 0DJD8ZZ Inspection of Lower Intestinal Tract, Via Natural or Artificial Opening Endoscopic (ICD-10-PCS; CPT 45378; principal; 2024-08-02 11:45)
DX: Z12.11 Encounter for screening for malignant neoplasm of colon (principal); K63.5 Polyp of colon; K63.89 Other specified diseases of intestine
CPT/HCPCS: 45380; 88305; 88361; J2003; J2704